=== PATIENT | male | born 1995 | race Caucasian/White ===

== ENCOUNTER 2017-05-10 13:15 | Emergency (ER) | payer OTHER ==
[~2017-05-10] VITALS: Ht 177.8 cm; Wt 81.7 kg
[~2017-05-10 13:15] MED LIST: ADVIL200 M1 PO; CLOTRIM ANTIFUN15 GM TOP; TYLENOL325 MG PO; ZOFRAN4 MG PO
== END 2017-05-10 14:34 | disposition home or self-care (01) ==
LOC: ED 13:15
DX: S62.330A Displaced fracture of neck of second metacarpal bone, right hand, initial encounter for closed fracture (principal); W22.8XXA Striking against or struck by other objects, initial encounter; F17.200 Nicotine dependence, unspecified, uncomplicated; Z88.0 Allergy status to penicillin; Z88.8 Allergy status to other drugs, medicaments and biological substances
CPT/HCPCS: 73130; 99283